=== PATIENT | female | born 1955 | race Caucasian/White ===

== ENCOUNTER 2021-01-21 09:29 | Outpatient (CLI) | payer MEDICARE | END 2021-01-21 09:30 | disposition home or self-care (01) | LOC: CSHMAMMO 09:29 | PROVIDERS: ATTEND Obstetrics & Gynecology | DX: Z13.820 Encounter for screening for osteoporosis (principal); M85.851 Other specified disorders of bone density and structure, right thigh | CPT/HCPCS: 77080 ==